=== PATIENT | male | born 1940 | race Caucasian/White ===

== ENCOUNTER 2019-08-16 16:01 | Inpatient (IN) | payer OTHER ==
[~2019-08-16] VITALS: Ht 175.3 cm; Wt 92.5 kg
[2019-08-16] VITALS (16 sets, daily range): BP systolic 80–201; BP diastolic 23–93
--- NOTE | ~2019-08-16 | HC ---
[facility] [place] [address] [place] [address] CONSULTATION Name: BETSY SALAZAR Jeremie MOONEY Room #: 411-P ADM IN M.R.#: [id number] Admission: 08/16/19 Attend Phys: Js Sosa MD Discharge: Date of : 40 Report #: [id number] THIS REPORT FOR: cc: Elodia Campoverde MD, Deborah M. MD Sears, Ryan D. DO ~ CC: Elodia Merino DATE OF SERVICE: 08/19/2019 PALLIATIVE CARE CONSULTATION REQUESTING PHYSICIAN: Dr. Sosa. CHIEF COMPLAINT: Metastatic bladder cancer. HISTORY OF PRESENT ILLNESS: The patient is a 79-year-old male who presented initially with complete heart block, subsequently had hypotension requiring pressors. 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 He had been followed by Dr. Guerra previously and has been seen by Dr. Ortega inpatient. The patient has had some recovery of blood pressure. Unfortunately, due to his extensive cancer diagnosis and in discussion with his oncologist over the last p.m., he is unable to complete further chemotherapy without worsening his overall condition. At this point in time, I have been able to discuss with family, although it has been difficult to elicit much response from him on date of service which was 08/18/2019. PAST MEDICAL HISTORY: Again, bladder cancer, right ureteral cancer, include complete heart block, acute renal failure, coronary artery disease with stents. PAST SURGICAL HISTORY: Again, stent placement. He is status post urethral prostatectomy. MEDICATIONS: Outpatient aspirin, vitamin D3, Plavix, metoprolol succinate, Protonix, vitamin B complex, Decadron and Zyprexa. ALLERGIES: LIPITOR, PENICILLIN AND SULFA. FAMILY HISTORY: Noncontributory. SOCIAL HISTORY: Spouse is present as well as 2 daughters for my discussion today on date 08/18/2019, he was currently listed as full code. [facility] [address] [place] [address] CONSULTATION Name: SALAZARBETSY III Room #: 411-[facility] IN M.R.#: [id number] Admission: 08/16/19 Attend Phys: Js Sosa MD Discharge: Date of : 40 Report #: [id number] REVIEW OF SYSTEMS: GENERAL: Difficult to obtain due to present medical condition, although he denies pain at this time. He denies significant dyspnea as well. PHYSICAL EXAMINATION: VITAL SIGNS: Included temperature 36.6, pulse 90, respirations 17, blood pressure 103/36, pulse ox 96%. GENERAL: He has poor attention level, currently not alert, unable to assess orientation. HEENT: He may have some mild scleral icterus. No conjunctival injection. INTEGUMENTARY: He does appear to have mild jaundice at this time. CARDIOVASCULAR: Regular rate and rhythm, though tachycardic. RESPIRATORY: Clear to auscultation anteriorly. ABDOMEN: Soft, nontender to palpation, but diminished bowel sounds noted. EXTREMITIES: Does have diffuse edema. LABORATORY DATA: These included white blood cell 1.6, hemoglobin 11.3, platelets 132, potassium was 5.1, creatinine 2.7, AST 426. ASSESSMENT AND PLAN: 1. Metastatic bladder cancer. At this point in time, I have had extensive discussion, lasting approximately 50 minutes with family of advanced care planning. This included spouse and 2 daughters. Did try to discuss with the patient, but he has delirium at this time and is difficult to assess any understanding. Discussed that they do wish him to be DNR at this time. Discussed that they do understand that he will be progressing towards the need for hospice care in the future. They do understand that he may be able to do some therapy procedures and they would like to see if he can either do a home health with palliative care initially or potentially therapy at a different location such as inpatient rehab or even skilled therapy prior to returning to home environment, but they do wish him to ultimately return to home with hospice type care. 2. Delirium. Due to his delirious state, currently unable to elicit his wishes. We will defer to family at this time. Did discuss this with case management at this time. 3. Acute renal failure, again also contributing to his overall prognosis. 4. 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 We will go ahead and order PT and OT in the thought that his evaluation may elicit whether he is able to participate further therapy or to return with hospice immediately. [address] [address] CONSULTATION Name: BETSY SALAZAR III Room #: 411-P [facility] IN M.R.#: [id number] Admission: 08/16/19 Attend Phys: Js Sosa MD Discharge: Date of : 40 Report #: [id number] Thank you very much for this consultation. By: [id number] Devonte Pierce DO /jordy
[2019-08-16 16:51] LABS: HEMATOCRIT 42.7 % (42.0-52.0); HEMOGLOBIN 13.2 gm/dL (14.0-18.0); MCH 27.8 pg (26.0-34.0); MCV 89.8 fL (80.0-100.0); PLATELET COUNT 276 thou/uL (150-400); RBC 4.76 mil/uL (4.50-6.00); RDW 16.7 % (10.5-14.5); WBC 15.4 thou/uL (4.0-11.0)
[2019-08-16 17:05] LABS: APTT 41.9 Seconds (24.5-32.8); INR 1.4; PROTIME 14.7 Seconds (9.3-11.4)
[2019-08-16 17:16] LABS: ALBUMIN 2.5 g/dL (3.4-5.0); ANION GAP 24 mmol/L (7-16); BUN 130 mg/dL (7-18); CALCIUM 8.7 mg/dL (8.5-10.1); CHLORIDE 99 mmol/L (98-107); CREATININE 3.8 mg/dL (0.7-1.3); DIRECT BILIRUBIN 15.8 mg/dL (<0.1-0.2); GLUCOSE 138 mg/dL (74-106); SGOT 470 U/L (15-37); SGPT 239 U/L (30-65); SODIUM 132 mmol/L (136-145); TOTAL BILIRUBIN 19.2 mg/dL (<0.1-1.0); TOTAL PROTEIN 5.6 g/dL (6.4-8.2); TROPONIN-I <0.06 ng/mL (<0.06)
--- NOTE | 2019-08-16 17:21 | NUR ---
DOPAMINE GTT UP ORDERED. 1600MCG/ML, 40MG/250ML. RATE TO TITRATE TO KEEP MAP OF 60
[2019-08-16 17:22] LABS: CO2 9 mmol/L (21-32)
[2019-08-16 17:38] LABS: ABSOLUTE NEUTROPHILS 14.5 thou/uL (1.4-8.2)
[2019-08-16 17:40] LABS: ANISOCYTOSIS 2+
--- NOTE | 2019-08-16 18:50 | NUR ---
PT. CONT. IN ER AND TO BE ADMITTED TO ICU. PT. ALERT AND ORIENTED X 3-4. PACING OFF AT THIS TIME. DOBUTAMINE GTT CONT. TO INFUSE ORDERED. PT. WITH IO ACCESS TO RIGHT LE. PT. SEEN BY DR. NEIL, AND DR. RIVERA WITH NEPHROLOGY. PT. FAMILY REMAINS AT BEDSIDE. PT. TO HAVE LABS DRAWN AGAIN PER ORDERS. WILL ALERT LAB/RECEIVING RN TO REPORT LAB VALUES TO DR. RIVERA (NEPHROLOGY).
[2019-08-16 20:45] LABS: CALCIUM 8.8 mg/dL (8.5-10.1); CREATININE 3.6 mg/dL (0.7-1.3)
[2019-08-16 20:51] LABS: POTASSIUM 6.2 mmol/L (3.5-5.1)
--- NOTE | 2019-08-16 20:51 | NUR ---
VASCULAR ACCESS CONSULTED FOR CENTRAL LINE PLACEMENT. DISCUSSED CVAD WITH PT, UNABLE TO SIGN CONSENT BUT DID GIVE VERBAL CONSENT ,WITNESSED IN ROOM WITH 2 RN'S. BEDSIDE TIMEOUT COMPLETE. RIJ WAS WIDELY PATENT WITH USG. 25CM 6FR TL POWER JACC INSERTED TO 9CM EXTERNAL WITH BRISK BR. STAT CXR CONFIRMED SVC PLACEMENT. RIJ RELEASED FOR IMMEDIATE USE PER PROTOCOL TO DENNIS HUIZAR. PT TOLERATED WELL
[2019-08-16 20:55] LABS: BE(vivo) -16.5 mmol/L (-2 to +3); HCO3 8.1 mmol/L (22.0-26.0); PO2 90.5 mmHg (80.0-100.0); sO2 96.1 % (92.0-98.0)
[2019-08-16 20:56] LABS: PCO2 18.2 mmHg (35.0-45.0); pH 7.265 (7.360-7.450)
[2019-08-16 21:50] LABS: ALBUMIN 2.4 g/dL (3.4-5.0); CALCIUM 8.5 mg/dL (8.5-10.1); CREATININE 3.5 mg/dL (0.7-1.3); PHOSPHORUS 8.9 mg/dL (2.5-4.9)
[2019-08-16 21:55] LABS: POTASSIUM 6.2 mmol/L (3.5-5.1)
[2019-08-16] MEDS ORDERED: ASA81BEC PO (22:35)
[2019-08-16] MEDS ORDERED: PLAVIX 75 MG TA75 MG PO (22:37)
[2019-08-16] MEDS ORDERED: VITAMIN D35000 UNI2 PO (22:37)
[2019-08-16] MEDS ORDERED: COENZYME Q10100 MG PO (22:38)
--- NOTE | 2019-08-16 22:38 | NUR ---
CALLED OBI GARCIA AT 2058, COMMUNICATED CRITICAL ABG RESULTS, AND BMP RESULTS. NO ORDERS, WAS INFORMED SHE WILL LOOK INTO THE CHART AND PLACE ORDERS. TALKED TO DR. RIVERA AT 2106, INFORMED HIM ABOUT CRITICAL ABGS AND BMP RESULTS. ORDERS FOR FLUIDS RECIEVED. ORDER FOR ADAIR PLACEMENT WELL. ATTEMPTED TO PLACE ADAIR WITH 14 COUDE CATHETER AT 2139 WITH NO SUCCESS. AWAIT 12 COUDE FROM TRANSPORTATION ASSOCIATE. WILL CONTINUE TO MONITOR.
[2019-08-16] MEDS ORDERED: TOPROL XL50 MG PO (22:41)
[2019-08-16] MEDS ORDERED: ZOFRAN8 MG PO (22:43)
[2019-08-16] MEDS ORDERED: PROTONIX40 M2 PO (22:44)
[2019-08-16] MEDS ORDERED: SENOKOT8.6 MG PO (22:45)
[2019-08-16] MEDS ORDERED: [UNRECOGNIZED DRUG - OTHER] (22:46)
[2019-08-16] MEDS ORDERED: B COMPLEX1 EACH PO (22:47)
[2019-08-16] MEDS ORDERED: DECADRON4 MG PO (22:52)
[2019-08-16] MEDS ORDERED: OLANZAPINE2.5 MG PO (22:56)
[2019-08-17] VITALS (75 sets, daily range): BP systolic 68–111; BP diastolic 24–47
--- NOTE | 2019-08-17 03:39 | NUR ---
PT ARRIVED FROM ER LAST NOC AROUND 1919. PT WAS DRWOSY AND ONLY ORIENTED TO PERSON AND TIME. THE NOC WENT BY HE INCREASINGLY BECAME ORIENTED TO PLACE AND WAS ABLE TO PROVIDE ACURATE PERSONAL MEDICAL HX. PT CAME TO THE FLOOR WITH DOPAMINE GTT TITRATED PRN TO STABILIZE BP. DR RIVERA NOTIFIED WHEN SYSTOLIC BP WAS IN THE 90s AND DIATOLIC WASIN THE 30s WITH SUSTAINING MAP OF 30s- 40s WITH DOPAMIN GTT AT 10. ORDERS RECIEVED FOR A ONETIME BOLUS OF 500ML OF NS. THIS INTERVENTION SEAMED TO STABILIZE PT'S BP. WE WERE UNABLE TO GET NEITHER 14FR NOR 12FR ADAIR CATHETHER INTO PT. EXTERNAL ADAIR WAS ATTEMPTED ON PT WAS THIS PROVED INEFFECTIVE WELL. PT IS INCONTINENT WITH BLOOD TINGED URINE. PT'S PENILE PAIN IS MANAGED PER RX IN SEP. PT IS STABLE, CURRENTLY SLEEPING. ADMISSION ASSESSMENT AND HX COMPLETED. WILL CONTINUE TO MONITOR PER POC.
[2019-08-17 05:58] LABS: HEMATOCRIT 38.3 % (42.0-52.0); HEMOGLOBIN 12.5 gm/dL (14.0-18.0); MCH 28.3 pg (26.0-34.0); MCHC 32.6 g/dL (28.0-37.0); RBC 4.4 mil/uL (4.50-6.00); RDW 16.4 % (10.5-14.5); WBC 11.3 thou/uL (4.0-11.0)
[2019-08-17 06:04] LABS: CALCIUM 8.6 mg/dL (8.5-10.1); CREATININE 3.3 mg/dL (0.7-1.3); MAGNESIUM 2.7 mg/dL (1.8-2.4)
[2019-08-17 06:13] LABS: POTASSIUM 6.4 mmol/L (3.5-5.1)
--- NOTE | 2019-08-17 07:48 | NUR ---
chart review. report from bedside nurse. pt up in bed, noted o2 per nasal cannula. pt opens eyes to call of his name. intro to cm, and transition of care. a & o self, place. pt answered yes and no to question. per pt " live with , yes steps and stairs. yes independent. no home o2. yes to manage own medication. no hh or rehab."/ qasim. pt open and closed eyes during visit. no family present during visit. will cont following as needed for dc needs.
--- NOTE | 2019-08-17 11:32 | 2DMMODE ---
[facility] [address] [place] [address] 2 D/M-MODE ECHOCARDIOGRAM Name: MARTINBETSY [facility]ao [facility] Room #: 246-P [facility] IN M.R.#: [id number] Admission: 08/16/19 Attend Phys: Js Sosa MD Discharge: Date of : 40 Report #: [id number] THIS REPORT FOR: cc: Elodia Campoverde MD, Deborah M. MD Lammoglia, Francisco J. MD ~ APPROVED REPORT Study performed: 08/17/2019 08:51:18 EXAM: Comprehensive 2D, Doppler, and color-flow Echocardiogram Patient Location: ICU Room #: 246 Status: routine BSA: 2.07 HR: 90 bpm BP: 101/41 mmHg Rhythm: LBBB Other Information Study Quality: Technically DifficultTechnically Limited Indications Arrhythmia CAD 2D Dimensions IVSd: 11.16 (7-11mm) LVOT Diam: 20.29 (18-24mm) LVDd: 41.36 mm PWd: 10.60 (7-11mm) LVDs: 27.36 (25-40mm) Aortic Root: 36.27 mm Aortic Valve AoV Peak Noel.: 1.58 m/s AO Peak Gr.: 9.95 mmHg LVOT Max P.21 mmHg LVOT Max V: 1.52 m/s KULWANT Vmax: 3.11 cm2 Pulmonary Valve PV Peak Noel.: 1.15 m/s PV Peak Gr.: 5.32 mmHg Tricuspid Valve [facility] [address] [place] [address] 2 D/M-MODE ECHOCARDIOGRAM Name: BETSY SALAZAR Jeremie III Room #: [facility]-P [facility] IN ..#: [id number] Admission: 08/16/19 Attend Phys: Js Sosa, Discharge: Date of : 40 Report #: [id number] TR Peak Noel.: 3.05 m/s TR Peak Gr.: 37.30 mmHg PA Pressure: 37.00 mmHg Left Ventricle The left ventricle is normal size. There is normal left ventricular wall thickness. Left ventricular systolic function is hyperdynamic. LVEF is >70%. This study is not technically sufficient to allow evaluation of the LV diastolic function. Right Ventricle Right ventricle is at the upper limits of normal. The right ventricular systolic function is normal. Atria Left atrium is at the upper limits of normal. Right atrium is at the upper limits of normal. Aortic Valve The aortic valve is normal in structure. The Aortic valve is sclerotic. No aortic regurgitation is present. There is no aortic valvular stenosis. Mitral Valve The mitral valve is normal in structure. Trace to mild mitral regurgitation. No evidence of mitral valve stenosis. Tricuspid Valve The tricuspid valve is normal in structure. There is trace tricuspid regurgitation. Estimated PAP 37 plus the right atrial pressure. There is mild pulmonary hypertension. Pulmonic Valve The pulmonary valve is normal in structure. There is no pulmonic valvular regurgitation. Great Vessels The aortic root is normal in size. The inferior vena cava is not well visualized. Pericardium There is no pericardial effusion. <Conclusion> The left ventricle is normal size. LVEF is >70%. [facility] [address] [place] [address] 2 D/M-MODE ECHOCARDIOGRAM Name: BETSY SALAZAR III Room #: 246-P [facility] IN ..#: [id number] Admission: 08/16/19 Attend Phys: Js Sosa, Discharge: Date of : 40 Report #: [id number] Right ventricle is at the upper limits of normal. The aortic valve is normal in structure. The Aortic valve is sclerotic. The mitral valve is normal in structure. Trace to mild mitral regurgitation. The tricuspid valve is normal in structure. There is trace tricuspid regurgitation. Estimated PAP 37 plus the right atrial pressure. There is mild pulmonary hypertension. The pulmonary valve is normal in structure. There is no pericardial effusion. <ELECTRONICALLY SIGNED> By: Jose Ramon Beckman MD 08/17/19 1131 113 113 Jose Ramon Beckman MD /INF
--- NOTE | 2019-08-17 18:46 | NUR ---
FAMILY REQUESTS THAT PATIENT BE TRANSFERRED TO , KNOWN TO UROLOGIST AND HEMOTOLOGIST THERE. RECENT CHEMO WITH COMPLICATIONS. DR NEIL NOTIFIED AND FAMILY AWARE THAT TRANSFER WILL NOT HAPPEN UNTIL TOMORROW
--- NOTE | 2019-08-17 23:13 | NUR ---
This blurb writer was unable to place 10 Fr catheter, due to extensive scar tissue. Pt was taken to IR at approx 2130, was notified and requested a call back when her returned to the room. The nephrostomy tube is located on the lower right flank/low back and is draining dark red blood at this time, will continue to monitor output. The pt was returned at approx 2250 in stable condition, post procedure vitals will be assessed. The was notified of his return. The pt is resting well at this time, will continue to monitor.
[2019-08-18] VITALS (25 sets, daily range): BP systolic 84–121; BP diastolic 33–48
--- NOTE | 2019-08-18 04:40 | NUR ---
Nephrostomy tube was emptied, 225 ml's of dark red drainage, but placement secretary in color in the tubing, site is intact. Male external catheter was also placed, and is draining dark yellow urine, had been incontinent of urine, was dribbling most the shift, and alise area is reddened, but intact. VSS, SR/ST per monitor, pt was treated x 1 with prn fentanyl, he is resting at this time. Pt is slowly progressing toward POC goals.
[2019-08-18 06:31] LABS: APTT 48.5 Seconds (24.5-32.8); INR 1.4; PROTIME 14.6 Seconds (9.3-11.4)
--- NOTE | 2019-08-18 07:12 | HC ---
[facility] [place] [address] [place] [address] CONSULTATION Name: BETSY SALAZAR Jeremie MOONEY Room #: 246-P [facility] IN M.R.#: [id number] Admission: 08/16/19 Attend Phys: Js Sosa MD Discharge: Date of : 40 Report #: [id number] THIS REPORT FOR: cc: Elodia Campoverde MD, Deborah M. 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 HISTORY OF PRESENT ILLNESS: The patient is a 79-year-old male who has recently been followed by Dr. Cyndy Reyes at [facility] for metastatic urothelial cancer. His history was significant for a high-grade urothelial carcinoma of the bladder, status post a radical nerve-sparing cystoprostatectomy with neobladder formation on 10/08/2012. 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 The patient then had presented with abdominal discomfort and other blood tests, and underwent a liver biopsy on about 07/30/2019, showing metastatic urothelial carcinoma with a PD-L1 of less than 10%. The patient discussed care with Dr. Reyes and began Gemzar, carboplatin on 08/13/2019. The dose that it was carboplatin, total dose 270 mg, and the Gemzar was 800 mg per meter squared. This was cycle 1, day 1. Note that on the day before therapy, the creatinine was 2.57, total bilirubin was 9.3, alkaline phosphatase 1176, AST 360, ALT 146. Potassium that day was 5.0. The patient, it seems by his report, had done fairly well for several days after chemotherapy without any unusual nausea or vomiting, though he was a little bit fuzzy. It is hard to know his oral intake history, and then I guess yesterday he felt poorly, may be altered mental status. EMS was called and was found to be in heart block. The patient was transdermally paced and also received dobutamine. Here, his liver tests were notable for total bilirubin of 19.2, AST 470; creatinine of 3.5, now 3.3. Note that also over at , his ultrasound and CAT scan of the liver did not show an obstructive pattern. Most likely, his liver dysfunction is from parenchymal disease. PAST MEDICAL HISTORY: Notable for the bladder cancer in 2012, the [facility] [address] [place] [address] CONSULTATION Name: BETSY SALAZAR [facility] Room #: 246-P [facility] IN M.R.#: [id number] Admission: 08/16/19 Attend Phys: Js Sosa MD Discharge: Date of : 40 Report #: [id number] cancer in 2017 and a recent recurrence, now stage IV urothelial cancer. Also, has a history of coronary artery disease with stent, now also has a history of previous renal insufficiency, now worse; also electrolyte abnormalities. 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 It sounds like he has 3 daughters in town; I think he said 6 grandchildren. IMAGING: Here has included a chest x-ray, which shows bilateral placement of a new right IJ central line without complication, poor inspiration. LABORATORY DATA: Notable as mentioned above for recent a CBC with white count of 11.3, hemoglobin 12.5, platelets 216. Creatinine 3.3 with potassium of 6.2 from last night, today at 6.4. Coags were normal. TSH 0.64. MEDICATIONS: At this time in the hospital currently include dopamine drip, IV sodium bicarbonate, heparin 5000 units b.i.d. subcutaneously, fentanyl p.r.n. Note that at , he was also on Plavix 75 mg daily, aspirin 81 mg daily, vitamin D 1000 units daily, coenzyme Q10 at 100 mg daily, dexamethasone with his chemo, metoprolol XL 25 mg daily and with a total of ____ mg Zyprexa with his chemo, Zofran p.r.n., pantoprazole twice daily, Senokot as needed, vitamin B daily, multivitamin daily. PHYSICAL EXAMINATION: GENERAL: The patient appears his stated age. VITAL SIGNS: Height is 5 feet 9 inches, which is ____ cm. Weight is 200 pounds, which is 90.9 kg. Blood pressure recently 104/35, O2 sat 96%, respirations 15, pulse 86, afebrile. MOOD: The patient is awake, pleasant and slightly fuzzy on details, having a hard time focusing. SKIN: Jaundiced with scleral icterus. LYMPHATICS: No enlarged lymph nodes in the supraclavicular, cervical, axillary or inguinal region. ABDOMEN: Slightly obese, does have some ecchymosis, may be from subcutaneous shots. EXTREMITIES: Do have some trace edema. No abdominal masses. ASSESSMENT AND PLAN: 1. Metastatic high-grade urothelial cancer to the liver, now status post cycle 1, day 1 of carboplatin, Gemzar on 08/13/2019. Too early to tell progression response. It is a concern the bilirubin is high, but this may be from hypotension from yesterday. We will continue serial monitoring. Prognosis is guarded. 2. Heart block. Continue transdermal pacing and meds per Cardiology. 3. Jaundice does not appear to be obstructive, is most likely due to parenchymal disease. [facility] [address] [place] [address] CONSULTATION Name: SALAZARBETSY III Room #: [address] [place] [address] [place] [facility].#: [id number] Admission: 08/16/19 Attend Phys: Js Sosa MD Discharge: Date of : 40 Report #: [id number] 4. Acute on chronic renal insufficiency, prerenal, appears to be slightly improved. 5. Electrolyte abnormalities. Defer to Renal. 6. Prophylaxis. Continue heparin. We will likely be adding some form of an acid felice. 7. History of coronary artery disease with stents. We will defer to others restarting of Plavix and/or aspirin and/or metoprolol. <ELECTRONICALLY SIGNED> By: Kasi Ortega MD 08/18/19711 9 7 Kasi Ortega MD /nt
[2019-08-18 07:44] LABS: ALBUMIN 2.1 g/dL (3.4-5.0); CALCIUM 8.4 mg/dL (8.5-10.1); CREATININE 3.3 mg/dL (0.7-1.3); PHOSPHORUS 5.8 mg/dL (2.5-4.9)
[2019-08-18 07:49] LABS: POTASSIUM 5.1 mmol/L (3.5-5.1)
--- NOTE | 2019-08-18 08:10 | NUR ---
chart review, spoke with bedside nurse and son in law at bedside. daughter toi is on her way. oncology MD here as well. will come back and visit when family here. pt in bed, eyes closed not verbal communication this visit.
[2019-08-18 08:19] LABS: HEMATOCRIT 35.1 % (42.0-52.0); RBC 4.02 mil/uL (4.50-6.00); RDW 16.5 % (10.5-14.5)
[2019-08-18 08:21] LABS: HEMOGLOBIN 11.3 gm/dL (14.0-18.0); MCH 28.1 pg (26.0-34.0); MCHC 32.2 g/dL (28.0-37.0); MCV 87.3 fL (80.0-100.0)
[2019-08-18 08:43] LABS: WBC 1.6 thou/uL (4.0-11.0)
[2019-08-18 09:33] LABS: ALBUMIN 2.1 g/dL (3.4-5.0); DIRECT BILIRUBIN 11.9 mg/dL (<0.1-0.2); TOTAL PROTEIN 4.3 g/dL (6.4-8.2)
[2019-08-18 09:35] LABS: TOTAL BILIRUBIN 14.6 mg/dL (<0.1-1.0)
--- NOTE | 2019-08-18 12:34 | EKG ---
[facility] [place] [address] [address] [place] [address] ELECTROCARDIOGRAM REPORT Name: BETSY SALAZAR III Room #: 246-P ADM IN M.R.#: [id number] Admission: 08/16/19 Attend Phys: Js Sosa MD Discharge: Date of : 40 Report #: [id number] THIS REPORT FOR: cc: Elodia Campoverde MD, Deborah M. MD Lundgren, Craig H. MD [facility] ~ THIS REPORT FOR: //name// [facility] ED Test Date: 2019-08-16 Test Time: 18:21:00 Pat Name: BETSY SALAZAR Department: Room: Gender: Packager Or Packer And Weigher: leonel : 1940 Requested By: Aleah Sarmiento Order Number: [id number] MD: Que Mark Measurements Intervals [place] Rate: 95 P: 17 TN: 198 QRS: -81 QRSD: 149 T: 71 QT: 384 QTc: 483 Interpretive Statements Sinus rhythm Right bundle branch block Left anterior hemiblock No previous ECG available for comparison Electronically Signed On 08-17-2019 9:11:05 SPECIAL EDUCATION TEACHERS by Que Mark [email or web address] <ELECTRONICALLY SIGNED> By: Que Mark MD, [facility] 08/17/19 0911 182 20 Que Mark MD, [facility] /EPI
--- NOTE | 2019-08-18 12:43 | EKG ---
[facility] [place] [address] [place] [address] ELECTROCARDIOGRAM REPORT Name: BETSY SALAZAR III Room #: 246-P ADM IN M.R.#: [id number] Admission: 08/16/19 Attend Phys: Js Sosa MD Discharge: Date of : 40 Report #: [id number] THIS REPORT FOR: cc: Elodia Campoverde MD, Deborah M. MD Lundgren, Craig H. MD [facility] ~ THIS REPORT FOR: //name// [facility] Test Date: 2019-08-18 Test Time: 07:26:42 Pat Name: BETSY SALAZAR Department: Room: 246 P Gender: M Staff Software Engineer: Elsa AGUAYO : 1940 Requested By: Que Mark Order Number: [id number] MD: Que Mark Measurements Intervals [place] Rate: 90 P: -21 PA: 174 QRS: -64 QRSD: 133 T: 84 QT: 373 QTc: 457 Interpretive Statements Sinus arrhythmia RBBB and LAFB Compared to ECG 08/16/2019 18:21:00 no significant change was found Electronically Signed On 08-18-2019 8:57:13 SURGICAL PHYSICIAN ASSISTANT by Que Mark [email or web address] <ELECTRONICALLY SIGNED> By: Que Mark MD, [facility] 08/18/19 0857 5 5 Que Mark MD, [facility] /EPI
--- NOTE | 2019-08-18 16:08 | NUR ---
Assumed care approx. 0700 this AM. Critical WBC and lactic acid values reported to Dr. Sosa. 500 ml NS bolus given which slightly improved SBP. Repeat lactic acid draws cancelled per order from Dr. Sosa as pt family is considering palliative care. Family currently in meeting with Dr. Pierce that began at 1600. Pt ALOx4 but extremely drowsy. No complaints of pain, just exhaustion. Pt able to wake up to drink clear fluids and eat jello. Right nephrostomy tube intact with adequate output. Pt noted to be congested with a cough, but sputum not observed. Pt incont of urine, but cont. of BMs and able to request a bedpan. Family updated continuously at bedside. Will continue to monitor. Pt staying comfortable which is the goal the pt and family request of at this time.
[2019-08-19] VITALS (11 sets, daily range): BP systolic 90–123; BP diastolic 32–49
--- NOTE | 2019-08-19 | NUR ---
PT RESTING QUIETLY. AROUSES EASILY ORIENTED X 3 REMAINS IN SINUS ARRHYTHMIA NEPHROSTOMY TUBE INTACT WITH A MOD AMT BLOODY DRAINAGE. INCONT OF A MOD AMT BLOOD TINGED URINE. REMAINS A DNR. WILL CONT TO MIHIR CLOSELY.
--- NOTE | 2019-08-19 02:00 | NUR ---
PATIENT TRANSFERED FROM ROOM 246 TO 248, STILL IN THE ICU. REPORT RECEIVED FROM JOSE ANTONIO HUIZAR. PATIENT CONNECTED TO THE VITAL SIGN MONITOR, ASSESSED PER ICU PROTOCOL, AND RESTING COMFORTABLY IN BED.
[2019-08-19 05:44] LABS: HEMATOCRIT 34.8 % (42.0-52.0); HEMOGLOBIN 11.6 gm/dL (14.0-18.0); MCH 28.2 pg (26.0-34.0); MCHC 33.2 g/dL (28.0-37.0); RBC 4.1 mil/uL (4.50-6.00); RDW 16.4 % (10.5-14.5)
[2019-08-19 05:52] LABS: WBC 1.2 thou/uL (4.0-11.0)
[2019-08-19 06:02] LABS: CALCIUM 8.2 mg/dL (8.5-10.1); CREATININE 2.7 mg/dL (0.7-1.3); POTASSIUM 5.6 mmol/L (3.5-5.1); TOTAL BILIRUBIN 16.6 mg/dL (<0.1-1.0); TOTAL PROTEIN 4.3 g/dL (6.4-8.2)
--- NOTE | 2019-08-19 08:21 | EKG ---
[facility] [place] [address] ELECTROCARDIOGRAM REPORT Name: BETSY SALAZAR III Room #: 248-P ADM IN M.R.#: [id number] Admission: 08/16/19 Attend Phys: Js Sosa MD Discharge: Date of : 40 Report #: [id number] THIS REPORT FOR: cc: Elodia Campoverde MD, Deborah M. MD Lundgren, Craig H. MD [facility] ~ THIS REPORT FOR: //name// [facility] Test Date: 2019-08-19 Test Time: 07:15:12 Pat Name: BETSY SALAZAR Department: Room: 248 Gender: M Equal Opportunity Officer: ELIOT : 1940 Requested By: Que Mark Order Number: [id number] MD: Que Mark Measurements Intervals [place] Rate: 93 P: -43 FL: 169 QRS: -55 QRSD: 122 T: 93 QT: 358 QTc: 446 Interpretive Statements Sinus rhythm RBBB and LAFB Compared to ECG 08/18/2019 07:26:42 No significant change was found Electronically Signed On 08-19-2019 8:20:54 CREDIT CONTROLLER by Que Mark [email or web address] <ELECTRONICALLY SIGNED> By: Que Mark MD, [facility] 08/19/19819 4 4 Que Mark MD, [facility] /EPI
--- NOTE | 2019-08-19 12:08 | NUR ---
cm visited with pt , and older daughter bekah at bedside. pt was up in recliner chair with facial grimace. bedside nurse in monitor pain. discussed dcp per family request, " want to see how he does with therapy, [facility] our choice for rehab and then would like hospice house to come and eval with information visit please"/family. cm team to send referral out.
--- NOTE | 2019-08-19 13:43 | NUR ---
FAXED REFERRAL TO HOSPICE SPOKE WITH MELISSA IN INTAKE SHE RECEIVED REFERRAL AND THEY WILL MEET WITH FAMILY THIS AFTERNOON. DP TO FOLLOW.
--- NOTE | 2019-08-19 19:16 | NUR ---
RECEIVED REPORT FROM NURSE ON 2N, PT ARRIVED ON UNIT BY WHEELCHAIR. PT IS WAITING FOR HOSPICE BED AT [facility] TOMORROW. VS TAKEN, CALL LIGHT IN REACH. PT IS CURRENTLY RESTING IN BED. WILL CONTINUE TO MONITOR.
[2019-08-20 03:40] LABS: RDW 16.3 % (10.5-14.5)
[2019-08-20 03:42] LABS: HEMATOCRIT 30.2 % (42.0-52.0); HEMOGLOBIN 10.1 gm/dL (14.0-18.0); MCH 28.4 pg (26.0-34.0); MCHC 33.4 g/dL (28.0-37.0); MCV 85.2 fL (80.0-100.0); RBC 3.54 mil/uL (4.50-6.00)
[2019-08-20 03:50] LABS: CALCIUM 7.8 mg/dL (8.5-10.1); CREATININE 2.9 mg/dL (0.7-1.3); MAGNESIUM 2.3 mg/dL (1.8-2.4); POTASSIUM 5.4 mmol/L (3.5-5.1)
--- NOTE | 2019-08-20 05:00 | NUR ---
ASSUMED CARE OF PATIENT AT APPROX 2145. ASSESSMENT CHARTED. SODIUM BICARB RUNNING ON R IJ AT 7SMLS/HR INTACT, ASPIRATED FOR BLOOD AND FLUSHING WELL. PATIENT WAS FOUND RESTING IN BED BUT DOES NOT APPEAR COMFORTABLE. HANDS WERE BLOODY PATIENT WAS PICKING AT HIS NOSE; PATIENT HAS BEEN HAVIGN NOSEBLEEDS THORUGHOUT THIS SHIFT. SALINE NASAL SPRAY WAS ORDERED AND AVAILABLE FOR PATIENT. PATIENT STATES PAIN OR 7-9/10 UPON EACH PAIN ASSESSMENT. PRN MED GIVEN WITH ASSIST FROM GAYE DE LOS SANTOS. BLOOD FROM NOSEBLEED TRICKLES DOWN PATIENTS THROAT AND MOUTH. MOUTH WAS BLOOD TINGED AND PATIENT SPIT UP BLOOD. BED BATH WAS GIVEN THIS SHIFT, EUGENIE CARE GIVEN, AND NEPHROSTOMY DRAINED ROUTINELY THIS SHIFT. PATIENT IS INCONT OF BLADDER. URINE IS BLOOD TINGED W SOME MUCOUS. NEPHROSTOMY DRAINAGE SIGNIFICANTLY BLOOD TINGED. PATIENT WAS BOOSTED UP AND IS REPOSITIONED EVERY 2 HRS FOR COMFORT, BUT IT IS DIFFICULT FOR PATIENT TO GET COMFORTABLE D/T "SORENESS" AND NOSEBLEED. THIS NURSE HELD PATIENTS NOSE IN ATTEMPT TO STOP NOSEBLEED. ORAL CARE PROVIDED. PATIENT IS VERY THIRSTY AND DRINKING A LOT OF WATER. PATIENT TO BE TRANSFERRED TO HOSPICE HOUSE TODAY 08/20 VIA [facility]. PATIENT REMAINS DNR STATUS. FALL PRECAUTIONS IN PLACE. WILL CONTINUE TO MONITOR AND FOLLOW PLAN OF CARE
[2019-08-20 08:30] VITALS: BP 105/56
[2019-08-20 09:34] LABS: WBC 1.2 thou/uL (4.0-11.0)
--- NOTE | 2019-08-20 09:59 | NUR ---
SW reviewed chart and spoke with nursing and attending physician. [facility]. [facility]. SW spoke with Nolvia in intake and Génesis, business liaison officer, who state that pt is on the waiting list. There is not currently a room available for pt. SW met with pt and dtr at bedside to provide update. Pt's dtr was under the impression that pt was leaving around 1100 today. BEBA explained that once a room becomes available, arrangements will be made to coordinate pt's discharge via [facility]. Pt and dtr verbalized understanding. [facility] ambulance form and outside the hospital DNR form on pt's chart. Attending physician needs to sign DNR form. SW is following to assist as needed with discharge planning.
--- NOTE | 2019-08-20 10:51 | NUR ---
Followup: Note pt will be transferring to hospice house. Defer further nutrition reassessment at this time unless consulted.
--- NOTE | 2019-08-20 19:35 | NUR ---
ASSUMED CARE OF THE PATIENT AT 0715, PATIENT ALERT BUT DROWSEY. C/O PAIN WITH ABDOMEN AREA, GENERALIZED. PATIENT HAS RIJTL WITH SODIUM BICARB. AT 75CC/HR. PATIENT HAS SWELLLING TO TESSIE. LOWER EXT. AND UPPER EXT. PATIENT HAS NEPHROSTOMY DRAIN TO RIGHT FLANK AREA. WITH 350CC OUT. PATIENT HAS BRIGIDO GIVEN FENTANYL 50MCG X 2 AND OXYCODONE 1 TABLET THIS SHIFT. PATIENT HAS BEEN UP TO THE CHAIR THIS SHIFT. FAMILY HAS BEEN AT BEDSIDE MOST OF THE DAY. JAUNDICED OVER BODY, BLADDER CA WITH METS TO LIVER. PATIENT WILL BE DISCHARGED TO HOSPICE WHEN BED AVAILABLE. CRITICAL WBC 1.2, DR NEIL NOTIFIED, NO NEW ORDERS RECEIVED. WILL CONTINUE TO MONITOR.
[2019-08-20 19:56] VITALS: BP 109/53
--- NOTE | 2019-08-21 04:02 | NUR ---
PATIENT ALERT AND ORIENTED X3. SLEPT MOST OF THE NIGHT. NO C/O PAIN. IVF INFUSING W/O COMPLICATION. TURNED FREQUENTLY. LEGS ELEVATED ON PILLOW, W/O SCD'S IN PLACE DUE TO EDEMA. PATIENT IS JUANDICE IN HIS SKIN AND EYES. MONITORING NEPHROSTOMY TUBE. RESTING QUIETLY. PATIENT IS WAITING FOR HOSPICE HOUSE EVALUATION AND POSSIBLE PLACEMENT. WILL MONITOR.
--- NOTE | 2019-08-23 07:11 | HC ---
[facility] [place] [address] CONSULTATION Name: SALAZARBETSY III Room #: 411-P [facility] IN M.R.#: [id number] Admission: 08/16/19 Attend Phys: Js Sosa MD Discharge: 08/21/19 Date of : 40 Report #: [id number] THIS REPORT FOR: cc: Elodia Campoverde MD, Deborah M. MD Neufeld,Abhijit Smith MD ~ CC: Elodia Merino DATE OF SERVICE: 08/16/2019 NEPHROLOGY CONSULTATION REASON FOR CONSULTATION: Hyperkalemia and acute kidney injury. HISTORY OF PRESENT ILLNESS: This is a 79-year-old male who was found down and unresponsive. EMS was called and he was found to be in complete heart block. He had an external pacemaker placed and he was brought into the Emergency Room. Labs will all be reviewed below. Just as I walked into the Emergency Room, he was getting back to a rhythm on his own, which appears to be a sinus rhythm. The external pacemaker has been pulled off. He had a potassium level of 7. He was given insulin, dextrose, high dose albuterol, sodium bicarbonate and some calcium gluconate. It looks like he has been given at least a liter of IV normal saline. He is also on 5 mcg per kilogram per minute dopamine at the present time, but has a good blood pressure in the 116/60 range. He is awake and reacting at this time. He has a and 3 daughters in the room, all of whom are very helpful in providing additional history and data. This is a patient who has a remote history of a transitional cell carcinoma. Years ago, he had a radical cystectomy, prostatectomy and a neobladder formed. He was well from that standpoint through his last visit over the summer. Then, he presented a couple of weeks ago and spent some time in the hospital at [facility]. During this time, he was found to have extensive metastatic disease that included extensive lymphadenopathy, multiple hepatic mets. One mass was biopsied and was consistent with metastatic urothelial cancer. The family states very clearly that he had scans and ultrasounds done and there was no evidence of ureteral or renal obstruction at that time and that his neobladder has been functioning. He did have a printed set of labs on their phone, which showed his creatinine level ran between 1.8 and 2.1 during that hospitalization. He was not having troubles with hyperkalemia at that time. Upon discharge from [facility], he went back to Oncology and received chemotherapy 3 days ago and then included I believe cytarabine and carboplatinum. Over the past 3 days, his intake has been down a bit. He is having some edema. He is complaining of continued abdominal pain. He is having [address] [address] CONSULTATION Name: BETSY SALAZAR III Room #: 411-P [facility] IN M.R.#: [id number] Admission: 08/16/19 Attend Phys: Js Sosa MD Discharge: 08/21/19 Date of : 40 Report #: [id number] some diarrhea, unaware of fevers, chills or sweats. PAST MEDICAL HISTORY: 1. 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 Also, the prostatectomy and formation of the neobladder, now metastatic as noted above. 2. Coronary artery disease, prior stents, many years ago. MEDICATIONS: In addition to the carboplatinum and cytarabine include aspirin 81 mg daily, vitamin D 1000 units daily, clopidogrel 75 mg daily, dexamethasone 4 mg, but that would have been taken last week at 8 mg doses none currently, metoprolol 75 mg daily, Zyprexa 2.5 mg, pantoprazole 40 mg b.i.d., some multivitamins, some p.r.n. ondansetron and stool softener. ALLERGIES: ATORVASTATIN, PENICILLIN and SULFA. FAMILY HISTORY: Noncontributory. SOCIAL HISTORY: The patient is and accompanied by his and 3 adult daughters at this time, one of whom is a nurse and is very helpful in his history. REVIEW OF SYSTEMS: Mostly as per the history of present illness. PHYSICAL EXAMINATION: GENERAL: Icteric, chronically ill-appearing male. Again, he was just taken off the external pacer as I walked in the room. VITAL SIGNS: Blood pressure 109/46, heart rate 86, oxygen saturation 100% with respiratory rate of 22. HEENT: Show pupils are 2 mm and reactive. Sclerae are dramatically icteric bilaterally. Oral mucosa is dry. NECK: Veins are not distended. Neck is supple, no adenopathy. CHEST: Shows a few wheezes bilaterally, poor excursion. It is symmetrical. HEART: Has tachycardia at this time that appears to be a sinus rhythm. Repeat EKG to be done. ABDOMEN: Quiet. It is very tender, multiple nodules palpable on abdominal exam. Many of these are very tender and it is difficult to differentiate whether we feeling liver, other abdominal masses. EXTREMITIES: Show 2+ bilateral lower extremity edema. No upper extremity edema. NEUROLOGIC: He is moving all 4 extremities and does respond appropriately at this time. LABORATORY DATA: Sodium 132, potassium 7.0, chloride 99, bicarbonate 9, BUN 130, creatinine 3.8, glucose 138, AST 470, ALT 239, total bilirubin 19.2, direct bilirubin 15.8, alkaline phosphatase 1046, total protein 5.6, albumin 2.5. INR [facility] [address] [place] [address] CONSULTATION Name: BETSY SALAZAR Jeremie MOONEY Room #: [address] [place] [address]#: [id number] Admission: 08/16/19 Attend Phys: Js Sosa MD Discharge: 08/21/19 Date of : 40 Report #: [id number] 1.4. White count 15.4, hemoglobin 13.2, hematocrit 42.7, platelets 276,000; differential on the white count 90, 4 segs, 4 lymphs, 2 monos. ASSESSMENT: 1. Acute hyperkalemia. He has been treated with insulin, dextrose, high dose albuterol, calcium gluconate and sodium bicarbonate. I have ordered some additional bicarbonate. He has gotten some IV fluids. We will recheck labs to direct additional therapy. He is showing a positive trend by getting an improved heart rhythm at this time. We will look and see what his actual EKG shows. 2. Acute kidney injury. Less than a week ago, he had a creatinine level of around 2.0, is up to 3.6 and it appears that he has been hypotensive and somewhat prerenal. We will give him some IV fluids as needed, although he looks very prone developing significant edema. He is oxygenating adequately at this time. 3. Metastatic urothelial cancer with documented mets to the liver and multiple areas of lymphadenopathy per family report and his [facility] hospitalization. 4. Dramatically abnormal hepatic function tests including bilirubin at 19, elevated transaminases, and alkaline phosphatase over 1000. All represent his metastatic disease to his liver. 5. Prior coronary artery disease. 6. Critically ill patient 3 days after a round of chemotherapy. At this point, the family and the patient are very interested in getting absolute everything done to try to help him. Obviously that will depend upon what his response to his metastatic disease. Tonight, we will work on stabilizing it. PLAN: 1. I have already ordered another amp of sodium bicarbonate. 2. Recheck BMP to see what his response is. We will gauge fluid administration and an additional treatment of his potassium pending those repeat labs. 3. We will be closely monitored in the Intensive Care Unit. 4. Agree with some low to moderate dose pressors to help maintain adequate blood pressure. 5. We will review his EKG when available. 6. Follow up labs closely in the morning. 7. Further decisions, which I am sure, will include the help of Dr. Ortega once we have stabilized him. <ELECTRONICALLY SIGNED> By: Abhijit Merino MD 08/23/19 0711 [id number] Abhijit Merino MD /nt
== END 2019-08-21 10:41 | DRG 682 ==
LOC: ER 16:01 → ICU 19:21 → 4N 08-19 18:30
PROVIDERS: Emergency Medicine; Hospitalist; Internal Medicine Hematology & Oncology; Internal Medicine Nephrology; ADMIT Internal Medicine
PROC: 02HV33Z Insertion of Infusion Device into Superior Vena Cava, Percutaneous Approach (ICD-10-PCS; principal; 2019-08-16)
PROC: B548ZZA Ultrasonography of Superior Vena Cava, Guidance (ICD-10-PCS; 2019-08-16)
PROC: 0T9330Z Drainage of Right Kidney Pelvis with Drainage Device, Percutaneous Approach (ICD-10-PCS; 2019-08-17)
DX: N17.9 Acute kidney failure, unspecified (principal); E43 Unspecified severe protein-calorie malnutrition; I44.2 Atrioventricular block, complete; C78.7 Secondary malignant neoplasm of liver and intrahepatic bile duct; E87.2 Acidosis; N13.30 Unspecified hydronephrosis; E87.5 Hyperkalemia; R74.0 Nonspecific elevation of levels of transaminase and lactic acid dehydrogenase [LDH]; E80.6 Other disorders of bilirubin metabolism; I25.10 Atherosclerotic heart disease of native coronary artery without angina pectoris; N18.9 Chronic kidney disease, unspecified; I95.9 Hypotension, unspecified; I45.10 Unspecified right bundle-branch block; K72.90 Hepatic failure, unspecified without coma; Z85.51 Personal history of malignant neoplasm of bladder; Z88.0 Allergy status to penicillin; Z88.1 Allergy status to other antibiotic agents; Z88.8 Allergy status to other drugs, medicaments and biological substances; Z68.30 Body mass index [BMI] 30.0-30.9, adult; Z79.899 Other long term (current) drug therapy; Z79.82 Long term (current) use of aspirin; Z95.5 Presence of coronary angioplasty implant and graft; Z85.54 Personal history of malignant neoplasm of ureter
CPT/HCPCS: 10078; 10091; 10790